=== PATIENT | female | born 1950 | race Caucasian/White ===

== ENCOUNTER 2017-03-10 10:28 | Inpatient (IN) | payer MEDICARE, OTHER ==
[~2017-03-10] VITALS: Ht 162.6 cm; Wt 72.6 kg
[2017-03-10] MEDS ORDERED: LEVO125T PO (11:07)
[2017-03-10] MEDS ORDERED: SERT50TA PO (11:18)
[2017-03-10] MEDS ORDERED: LIOT5TAB6 PO (11:18)
[2017-03-10] MEDS ORDERED: TRAZ50TA18 PO (11:18)
[2017-03-10] MEDS ORDERED: ALPR-475 PO (11:18)
[2017-03-10] MEDS ORDERED: OXYC15TA PO (11:18)
[2017-03-10] MEDS ORDERED: METH-356 PO (11:18)
[2017-03-10] MEDS ORDERED: MAALOX/HYOSCYAMINE/LIDOCAINE 45 ML BOTTLE ONE (11:20)
[2017-03-10] MEDS ORDERED: SODIUM CHLORIDE FLUSH 10ML SYR IVF ONE (11:30)
[2017-03-10] MEDS ORDERED: MAALOX/HYOSCYAMINE/LIDOCAINE 45 ML BOTTLE PO ONE (11:30)
[2017-03-10] MEDS ORDERED: SODIUM CHLORIDE 0.9% 1,000ML IVBOLUS ONE (11:30)
[2017-03-10 11:51] LABS: BLOOD UREA NITROGEN 12 mg/dL (7-18)
[2017-03-10 11:56] LABS: ASPARTATE AMINO TRANSFERASE 14 U/L (15-37)
[2017-03-10 12:00] LABS: IS PT STATUS REG ER OR PRE ER? YES
[2017-03-10] MEDS ORDERED: MORPHINE SULFATE 4 MG/ML, 1ML ONE ×2 (13:54→15:17)
[2017-03-10] MEDS: MORPHINE SULFATE 4 MG/ML, 1ML IVPush PRN ×2 (14:39→15:18)
[2017-03-10] MEDS ORDERED: OMNIPAQUE 350 MG/ML, 100ML BOTTLE ONE (15:40)
[2017-03-10 16:44] VITALS: BP 113/70
[2017-03-10] MEDS ORDERED: morphine SULFATE 10 MG/ML, 1ML IVPush PRN (18:00)
[2017-03-10] MEDS ORDERED: ONDANSETRON 2MG/ML, 2ML IVPush PRN (18:00)
[2017-03-10] MEDS ORDERED: HYDROcodone/APAP 5/325 TABLET PO PRN (18:00)
[2017-03-10] MEDS ORDERED: ENALAPRILAT 1.25 MG/ML, 2ML IVPush PRN (18:00)
[2017-03-10] MEDS ORDERED: ACETAMINOPHEN 325 MG TABLET PO PRN (18:00)
[2017-03-10] MEDS: CEFTRIAXONE PMX 1GM/50ML 50 ML IV SCH (18:34)
[2017-03-10] MEDS: ENOXAPARIN 40 MG/0.4 ML SQ SCH (18:35)
[2017-03-10 19:10] VITALS: BP 90/57
[2017-03-10 20:00] VITALS: BP 92/58
[2017-03-10] MEDS: AZITHROMYCIN 500 MG in SODIUM CHLORIDE 0.9% 250 ML IV SCH (20:20)
[2017-03-10] MEDS: PANTOPROZOLE 40MG TABLET PO SCH (20:59)
[2017-03-10] MEDS: METHADONE 10 MG TABLET PO SCH (21:00)
[2017-03-10 22:22] VITALS: BP 99/62
[2017-03-10 22:30] LABS: IS PT STATUS REG ER OR PRE ER? NO
[2017-03-11 01:10] VITALS: BP 95/58
[2017-03-11 04:35] VITALS: BP 112/68
[2017-03-11] MEDS: OXYcodone IR 30 MG TABLET PO PRN ×3 (04:40→19:32)
[2017-03-11 05:10] LABS: ASPARTATE AMINO TRANSFERASE 16 U/L (15-37); BLOOD UREA NITROGEN 11 mg/dL (7-18)
[2017-03-11 05:17] LABS: IS PT STATUS REG ER OR PRE ER? NO
[2017-03-11 08:00] VITALS: BP 94/55
[2017-03-11] MEDS ORDERED: REGADENOSON 0.4 MG/5 ML SYRINGE ONE (08:51)
[2017-03-11] MEDS: SERTRALINE 50MG TABLET PO SCH ×3 (09:00→22:06)
[2017-03-11] MEDS: METHADONE 10 MG TABLET PO SCH ×3 (09:00→21:00)
[2017-03-11] MEDS: PANTOPROZOLE 40MG TABLET PO SCH ×2 (11:18→22:03)
[2017-03-11] MEDS: LEVOTHYROXINE 125 MCG TABLET PO SCH (11:18)
[2017-03-11] MEDS: LIOTHYRONINE 5 MCG TABLET PO SCH ×2 (11:18→21:00)
[2017-03-11 13:50] VITALS: BP 124/73
[2017-03-11] MEDS: CEFTRIAXONE PMX 1GM/50ML 50 ML IV SCH (18:33)
[2017-03-11] MEDS: ENOXAPARIN 40 MG/0.4 ML SQ SCH (18:33)
[2017-03-11 19:00] VITALS: BP 116/65
[2017-03-11] MEDS: AZITHROMYCIN 500 MG in SODIUM CHLORIDE 0.9% 250 ML IV SCH (19:32)
[2017-03-11 21:56] VITALS: BP 117/70
[2017-03-11] MEDS: TEMAZEPAM 15 MG CAPSULE PO PRN (22:07)
[2017-03-12 01:25] VITALS: BP 133/75
[2017-03-12] MEDS: OXYcodone IR 30 MG TABLET PO PRN ×2 (02:01→19:39)
[2017-03-12] MEDS: POLYETHYLENE GLYCOL 17 GM PACKET NG PRN ×2 (02:01→17:59)
[2017-03-12] MEDS: LEVOTHYROXINE 125 MCG TABLET PO SCH (06:16)
[2017-03-12 08:20] VITALS: BP 123/74
[2017-03-12] MEDS: METHADONE 10 MG TABLET PO SCH ×4 (08:43→17:59)
[2017-03-12] MEDS: SERTRALINE 50MG TABLET PO SCH ×2 (08:43→21:30)
[2017-03-12] MEDS: LIOTHYRONINE 5 MCG TABLET PO SCH ×3 (08:43→21:29)
[2017-03-12] MEDS: PANTOPROZOLE 40MG TABLET PO SCH ×2 (08:43→21:29)
[2017-03-12 14:18] VITALS: BP 139/75
[2017-03-12] MEDS: CEFTRIAXONE PMX 1GM/50ML 50 ML IV SCH (17:16)
[2017-03-12] MEDS: ENOXAPARIN 40 MG/0.4 ML SQ SCH (17:59)
[2017-03-12] MEDS: AZITHROMYCIN 500 MG in SODIUM CHLORIDE 0.9% 250 ML IV SCH (17:59)
[2017-03-12 21:23] VITALS: BP 135/76
[2017-03-12] MEDS: TEMAZEPAM 15 MG CAPSULE PO PRN (21:38)
[2017-03-13 01:48] VITALS: BP 132/75
[2017-03-13] MEDS: POLYETHYLENE GLYCOL 17 GM PACKET NG PRN (02:09)
[2017-03-13] MEDS: OXYcodone IR 30 MG TABLET PO PRN ×2 (02:19→13:56)
[2017-03-13] MEDS: LEVOTHYROXINE 125 MCG TABLET PO SCH (06:16)
[2017-03-13 08:12] VITALS: BP 151/83
[2017-03-13] MEDS: LIOTHYRONINE 5 MCG TABLET PO SCH ×2 (08:12→21:10)
[2017-03-13] MEDS: PANTOPROZOLE 40MG TABLET PO SCH ×2 (08:12→21:09)
[2017-03-13] MEDS: METHADONE 10 MG TABLET PO SCH ×3 (08:13→21:09)
[2017-03-13] MEDS ORDERED: BISACODYL 10 MG SUPP PR PRN (11:30)
[2017-03-13 17:11] VITALS: BP 150/89
[2017-03-13] MEDS: ENOXAPARIN 40 MG/0.4 ML SQ SCH (17:47)
[2017-03-13] MEDS: CEFTRIAXONE PMX 1GM/50ML 50 ML IV SCH (17:47)
[2017-03-13] MEDS: AZITHROMYCIN 500 MG in SODIUM CHLORIDE 0.9% 250 ML IV SCH (19:17)
[2017-03-13 19:56] VITALS: BP 131/77
[2017-03-13] MEDS: SERTRALINE 50MG TABLET PO SCH (21:09)
[2017-03-13] MEDS: TEMAZEPAM 15 MG CAPSULE PO PRN (23:27)
[2017-03-14 00:47] VITALS: BP 149/80
[2017-03-14] MEDS: OXYcodone IR 30 MG TABLET PO PRN ×3 (01:37→16:51)
[2017-03-14] MEDS: LEVOTHYROXINE 125 MCG TABLET PO SCH (04:59)
[2017-03-14] MEDS ORDERED: POLY17PO5 NG (07:38)
[2017-03-14] MEDS ORDERED: LACT1CAP24 PO (07:38)
[2017-03-14] MEDS ORDERED: AZIT500T PO (07:38)
[2017-03-14] MEDS ORDERED: CEFD300C37 PO (07:38)
[2017-03-14 08:18] VITALS: BP 144/82
[2017-03-14] MEDS: LIOTHYRONINE 5 MCG TABLET PO SCH (08:53)
[2017-03-14] MEDS: METHADONE 10 MG TABLET PO SCH ×2 (08:53→16:51)
[2017-03-14] MEDS: PANTOPROZOLE 40MG TABLET PO SCH (08:53)
[2017-03-14 13:42] VITALS: BP 139/82
[2017-03-14] MEDS ORDERED: PNEUMOCOCCAL 23 VACCINE IM-VACC ONE (17:00)
== END 2017-03-14 18:48 | disposition home or self-care (01) | DRG 871 ==
LOC: ED 14:00 → EDIP 14:41 → 5SO 16:09
PROVIDERS: ADMIT Internal Medicine; ATTEND Internal Medicine
DX: A41.9 Sepsis, unspecified organism (principal); J18.1 Lobar pneumonia, unspecified organism; E06.3 Autoimmune thyroiditis; K59.00 Constipation, unspecified; I34.1 Nonrheumatic mitral (valve) prolapse; M79.7 Fibromyalgia; Z90.710 Acquired absence of both cervix and uterus; Z79.899 Other long term (current) drug therapy; Z88.6 Allergy status to analgesic agent; Z88.0 Allergy status to penicillin; Z88.2 Allergy status to sulfonamides; Z82.49 Family history of ischemic heart disease and other diseases of the circulatory system; Z80.42 Family history of malignant neoplasm of prostate; Z87.892 Personal history of anaphylaxis
CPT/HCPCS: 36415; 71010; 71275; 78452; 80053; 82962; 83735; 83880; 84100; 84443; 84484; 85025; 85651; 86038; 86140; 90732; 93005; 93017; 93306; 96361; 96374; 96376; J0456; J0696; J1650; J2785; Q9967; A9502; C9898; J2270; J7030; J7050

== ENCOUNTER → 2017-04-10 | Outpatient (CLI) | payer MEDICARE, OTHER ==
[~2017-04-10] MED LIST: ALPR-475 PO; AZIT500T PO; CEFD300C37 PO; LACT1CAP24 PO; LEVO125T PO; LIOT5TAB6 PO; METH-356 PO; OMNIPAQUE 350 MG/ML, 100ML BOTTLE ONE; OXYC15TA PO; POLY17PO5 NG; SERT50TA PO; TRAZ50TA18 PO
== END | disposition home or self-care (01) ==
LOC: CFH 15:23
PROVIDERS: ATTEND Family Medicine
DX: J18.9 Pneumonia, unspecified organism (principal); D51.8 Other vitamin B12 deficiency anemias; R09.1 Pleurisy; J98.11 Atelectasis
CPT/HCPCS: 36415; 71260; 82607; 85025; Q9967

== ENCOUNTER → 2020-11-07 | Outpatient (CLI) | payer MEDICARE, OTHER ==
[~2020-11-07] MED LIST changes: -ALPR-475 PO; +ALPR0.5T7 PO; +LIOT5TAB10 PO; -LIOT5TAB6 PO; -METH-356 PO; +METH10TA2 PO; -OMNIPAQUE 350 MG/ML, 100ML BOTTLE ONE; -OXYC15TA PO; +OXYC15TA3 PO; -TRAZ50TA18 PO; +TRAZ50TA66 PO
== END | disposition home or self-care (01) ==
LOC: CFH 08:24
PROVIDERS: ATTEND Family Medicine
DX: M47.817 Spondylosis without myelopathy or radiculopathy, lumbosacral region (principal); M41.86 Other forms of scoliosis, lumbar region; M51.36 Other intervertebral disc degeneration, lumbar region; M15.0 Primary generalized (osteo)arthritis
CPT/HCPCS: 72110